=== PATIENT | male | born 1960 | race Caucasian/White ===

== ENCOUNTER 2023-09-11 13:29 | Emergency (ER) | payer OTHER ==
[~2023-09-11] VITALS: Ht 188 cm; Wt 108.0 kg
[2023-09-11 14:40] LABS: BASOPHILS % (AUTO) 0.6 % (0-1); EOSINOPHILS # (AUTO) 0.3 X10'3 (0-0.9); HEMATOCRIT 48.3 % (42.0-52.0); HEMOGLOBIN 16.2 g/dl (14.0-17.9); LYMPHOCYTES # (AUTO) 0.9 X10'3 (1.1-4.8); LYMPHOCYTES % (AUTO) 13.4 % (21-51); MEAN CORPUSCULAR HEMOGLOBIN 28.8 PG (27.0-31.0); MEAN CORPUSCULAR HGB CONC 33.6 g/dL (33.0-36.5); MEAN CORPUSCULAR VOLUME 85.7 FL (78-98); MEAN PLATELET VOLUME 8.1 FL (7.4-10.4); MONOCYTES # (AUTO) 0.4 X10'3 (0-0.9); MONOCYTES % (AUTO) 5.4 % (2-12); NEUTROPHILS # (AUTO) 5.3 X10'3 (1.8-7.7); NEUTROPHILS % (AUTO) 76.6 % (42-75); PLATELET COUNT 235 X10'3 (140-440); RED BLOOD COUNT 5.63 X10'6 (4.70-6.10); RED CELL DISTRIBUTION WIDTH 14.1 % (11.5-14.5)
[2023-09-11 15:10] LABS: ALANINE AMINOTRANSFERASE 57 U/L (12-78); ALBUMIN 4.1 G/DL (3.4-5.0); ALBUMIN/GLOBULIN RATIO 1.1 (1.1-1.5); ALKALINE PHOSPHATASE 69 IU/L (46-116); ANION GAP 10 (8-16); ASPARTATE AMINO TRANSFERASE 23 U/L (10-37); BILIRUBIN,TOTAL 0.7 MG/DL (0.1-1.0); BLOOD UREA NITROGEN 13 MG/DL (7-18); BUN/CREATININE RATIO 14.6 (10.0-20.0); CALCIUM 8.8 MG/DL (8.5-10.1); CHLORIDE 102 MMOL/L (99-107); CREATININE 0.89 MG/DL (0.60-1.10); GLUCOSE 126 MG/DL (70-104); POTASSIUM 4.2 MMOL/L (3.5-5.1); SODIUM 137 MMOL/L (135-145); TOTAL CARBON DIOXIDE 25.5 MMOL/L (24-32); TOTAL PROTEIN 7.9 G/DL (6.4-8.2); eCRCL 97 ML/MIN; eGFR 86 ML/MIN
[2023-09-11 15:11] LABS: PRO BRAIN NATRIURETIC PEPTIDE 41 PG/ML (0-125)
[2023-09-11] MEDS ORDERED: acetaminophen 325mg tablet PO ONE (17:20)
[2023-09-11] MEDS: scopolamine 1MG/72H patch 1 PATCH PATCH.TD.3 TD SCH ×2 (17:20→19:54)
[2023-09-11] MEDS ORDERED: ondansetron/PF 4mg/2ml inj IV ONE (17:20)
[2023-09-11] MEDS ORDERED: hydrALAZINE 20mg/ml inj. IV ONE ×2 (17:20→19:35)
[2023-09-11] MEDS ORDERED: meclizine 12.5mg tablet PO ONE (17:20)
[2023-09-11] MEDS ORDERED: iohexol 350MG/ML 100ml bottle IV ONE (17:27)
[2023-09-11 17:45] LABS: CHOL/HDL RATIO 5.5 (0.00-4.99); CHOLESTEROL 191 MG/DL (0-200); HDL CHOLESTEROL 35 MG/DL (35-60); LDL CHOLESTEROL 95 MG/DL (50-100); TRIGLYCERIDES 288 MG/DL (20-135)
[2023-09-11] MEDS ORDERED: LORazepam 2 mg/ml vial IV ONE (19:35)
[2023-09-11] MEDS ORDERED: MECL-231 PO (19:53)
[2023-09-11] MEDS ORDERED: HYDR50TA46 PO (19:53)
[2023-09-11] MEDS ORDERED: ONDA4TAB12 PO (19:53)
[2023-09-11 20:12] VITALS: BP 169/95; PULSE 81; RESP 12; TEMP 97.2; O2SAT 99
== END 2023-09-11 20:15 | disposition home or self-care (01) ==
LOC: ER 13:30
DX: R42 Dizziness and giddiness (principal)
CPT/HCPCS: 36415; 70450; 70496; 70498; 71045; 80053; 80061; 83880; 84484; 85025; 93005; 96374; 96376; 99285; J0360; J3490; Q9967